=== PATIENT | male | born 1990 | race Caucasian/White ===

== ENCOUNTER 2018-09-09 02:32 | Emergency (ER) | payer SELFPAY ==
[~2018-09-09] VITALS: Ht 165.1 cm; Wt 77.1 kg
[2018-09-09 02:44] VITALS: BP 125/80; Ht 165.1 cm; Wt 77.1 kg
== END 2018-09-09 03:46 | disposition other institution (70) ==
LOC: ED 02:32
DX: S40.211A Abrasion of right shoulder, initial encounter (principal); S80.211A Abrasion, right knee, initial encounter; X58.XXXA Exposure to other specified factors, initial encounter; Y93.67 Activity, basketball; Y92.310 Basketball court as the place of occurrence of the external cause; Y99.8 Other external cause status

== ENCOUNTER 2018-09-09 02:32 | Emergency (ER) | payer OTHER | END 2018-09-09 03:46 | disposition other institution (70) | LOC: ED 02:32 | DX: Z02.89 Encounter for other administrative examinations (principal) ==